=== PATIENT | female | born 1960 | race Caucasian/White ===

== ENCOUNTER → 2016-09-02 | Outpatient (CLI) | payer BC, OTHER | LOC: FIMAGING 08:56 | DX: Z12.31 Encounter for screening mammogram for malignant neoplasm of breast (principal) | CPT/HCPCS: G0202 ==

== ENCOUNTER 2017-01-10 13:50 | Emergency (ER) | payer BC ==
[2017-01-10 14:00] VITALS: RESP 16; TEMP 98.4; O2SAT 98
[2017-01-10] MEDS ORDERED: AMOXICILLIN/CLAVULANATE POT 875/125 MG TAB PO ONE (14:10)
--- NOTE | 2017-01-10 14:21 | EDPHY ---
H & P Stated Complaint: CAT BITE R HAND Time Seen by Provider: 01/10/17 14:06 HPI/ROS: Chief complaint: Cat bite to hand The history of present illness: This is a 56-year-old female who presents to the emergency department for evaluation treatment of a cat bite to her hand. Patient states her mother's cat who is healthy and up-to-date on immunizations bit her right hand earlier today. The cat was upset and provoked. She has sustained two 2 puncture wounds at the base of the pointer finger. She has developed mild redness and swelling. It does hurt. She is still moving the finger well. The finger itself is unaffected. There is no red streaking up the arm. No fever. No other complaints. - Personal History Current Tetanus Diphtheria and Acellular Pertussis (TDAP): Yes Tetanus Vaccine Date: < 10 YEARS - Medical/Surgical History Hx Asthma: No Hx Chronic Respiratory Disease: No Hx Diabetes: No Hx Cardiac Disease: No Hx Renal Disease: No Hx Cirrhosis: No Hx Alcoholism: No Hx HIV/AIDS: No Hx Splenectomy or Spleen Trauma: No Other PMH: DENIES - Social History Smoking Status: Never smoked - Physical Exam Exam: General: Alert, nontoxic Skin: 2 puncture wounds to the right hand just lateral to the base of the pointer finger. Mild erythema and edema around the puncture wounds. Musculoskeletal: No edema of the pointer finger. She is moving all fingers all joints all roque. Vascular: Capillary refill brisk in the right pointer finger. Neurologic: Sensation intact in the right pointer finger Constitutional: Initial Vital Signs Temperature (C) 36.9 C 01/10/17 13:58 Heart Rate 58 L 01/10/17 13:58 Respiratory Rate 16 01/10/17 13:58 Blood Pressure 114/72 01/10/17 13:58 O2 Sat (%) 98 01/10/17 13:58 O2 Delivery Mode Room Air Allergies/Adverse Reactions: No Known Allergies Allergy (Unverified 01/10/17 14:01) Home Medications: Medication Instructions Recorded Omeprazole 07/03/15 Amoxicillin/Clavulanate Pot 875 mg PO BID #14 tab 01/10/17 [Augmentin 875 MG TAB (*)] Medical Decision Making - Diagnostics Imaging Results: Imaging Impressions Hand X-Ray 01/10/17 14:10 Impression: No evidence for acute fracture. Imaging: I viewed and interpreted images myself ED Course/Re-evaluation: Patient seen under the supervision of my secondary supervising physician Dr. Oscar Osman. Patient presents to the emergency department for a cat bite. The cat is reported as healthy. Her tetanus is up-to-date. I am concerned for a developing infection. However no evidence of severe infection such as infectious tenosynovitis or lymphangitis. An x-ray is obtained to ensure no retained foreign body. Patient started on Augmentin. Home care is discussed. She has been given strict return precautions. Patient voiced understanding and agreement with plan. Differential Diagnosis: Included but not limited to puncture wound, cellulitis, abscess, infectious tenosynovitis, lymphangitis - Data Points Medications Given: Discontinued Medications Amoxicillin/Clavulanate Potassium (Augmentin 875mg) 875 mg PO EDNOW ONE PRN Reason: Protocol Stop: 01/10/17 14:11 Last Admin: 01/10/17 14:14 Dose: 875 mg Departure - Departure Disposition: Home, Routine, Self-Care Clinical Impression: Cat bite Qualifiers: Encounter type: initial encounter Qualified Code(s): W55.01XA - Bitten by cat, initial encounter Condition: Good Instructions: Animal Bite (ED), Acute Wounds (ED) Additional Instructions: Follow-up with her primary care doctor this week for recheck If symptoms worsen or new symptoms develop return to the emergency room for recheck Referrals: Linda Kenyon MD [Primary Care Provider] - As per Instructions Prescriptions: Amoxicillin/Clavulanate Pot [Augmentin 875 MG TAB (*)] 875 mg PO BID #14 tab
[2017-01-10 15:23] VITALS: BP 115/67; PULSE 78
== END 2017-01-10 15:23 | disposition home or self-care (01) ==
DX: S61.451A Open bite of right hand, initial encounter (principal); W55.01XA Bitten by cat, initial encounter